=== PATIENT | female | born 1950 | race Caucasian/White ===

== ENCOUNTER 2017-02-24 16:51 | Emergency (ER) | payer MEDICARE, BC ==
--- NOTE | 2017-03-05 16:41 | ER ---
ADMIT: 02/24/2017 RM/LOC: ER [facility] MR#: [id number] [address] [id number] S[place] [address] [place] [address] Emergency Room Report SEX: F AGE: 66 : 1950 DATE: 02/24/2017 ADDENDUM: This patient comes into the ER because she has a very odd type headache for her. She states not a very severe headache however. She feels like she has a cap on the top of her head that is making her scalp numb. Her brother recently from having an aneurysm and she is concerned that it is happening with her. She denies any vision or speech changes. Able to ambulate okay, and she feels like her thoughts are clear. On physical exam, she is alert and oriented. She acts appropriately. Cranial nerves are normal. CT of her head was fine. The patient refused any kind of treatment for the pain in her head. When she got the results of her CT scan she was relieved. If she should have any neuro changes and we did talk about what those were, she is to return to the ER or follow up with Dr. Vidal. Please see my T-sheet EMILY King / Jesús Wan MD / rylee JOB #: [id number] CC: Jesús Wan MD, Attending Physician Hernán James MD, Family Physician
== END 2017-02-24 18:31 | disposition home or self-care (01) ==
LOC: ER 16:51
DX: R51 Headache (principal); Z98.890 Other specified postprocedural states; Z79.899 Other long term (current) drug therapy